=== PATIENT | female | born 1960 | race Caucasian/White ===

== ENCOUNTER 2023-04-29 09:20 | Outpatient (OUT) | payer OTHER, SELFPAY ==
--- NOTE | 2023-04-29 09:29 | MR_ITS ---
The [address] [address] Patient Name: MIS POLO MRN: [id number] date: 1960 Sex: F Assigned Patient Location: MRI Current Patient Location: MRI Accession/Order Number: [id number] Exam Date: 04/29/2023 09:50 Report Date: 04/29/2023 12:37 At the request of: NON-STAFF PHYSICIAN Procedure: MR foot LT wo con HISTORY: Chronic left heel pain radiating into the plantar surface of the left foot for the past year. The patient has reportedly had prior surgery for plantar fasciitis. MR foot LT wo con: 04/29/2023, 9:50 AM EST COMPARISON: Radiographs left foot 07/24/2018 and radiographs left ankle 07/25/2018. TECHNIQUE: Multiplanar, multisequence MRI images of the left foot were obtained without contrast. FINDINGS: Several images are degraded by motion artifact. This motion artifact is most pronounced on the T2 images. LIGAMENTS AND TENDONS: The anterior talofibular ligament appears thin but of low signal intensity. The deltoid ligament complex appears thin but of low signal intensity. There are well-corticated ossific foci seen along the inferior aspect of the medial malleolus compatible with the sequela of remote trauma to this region. The other ligaments of the ankle appear grossly unremarkable. The Lisfranc ligament complex appears intact. No significant tendinopathy, tendon tear, or tenosynovitis is seen. BONES AND JOINTS: The bone marrow signal intensity appears age appropriate. There are mild degenerative changes of the first MTP joint and moderate degenerative changes of the first metatarsal-sesamoid joints. There are mild degenerative changes of the calcaneocuboid joint with mild reactive subchondral bone marrow edema involving the proximal and dorsal [facility]. No other bone marrow edema-like signal is seen. MUSCLES AND SOFT TISSUES: The visualized musculature appears of normal signal intensity. No Breaux neuroma or intermetatarsal bursitis is seen. PLANTAR FASCIA: There is a large plantar calcaneal enthesophyte again seen. There is moderate thickening and intermediate signal intensity of the proximal portion of the central and lateral band of the plantar fascia at their attachment to the calcaneus as best seen on the sagittal proton-density fat-saturated images. MR/MR foot LT wo con IMPRESSION: 1. There are MRI findings compatible with at least moderate plantar fasciitis involving the proximal portion of the central and lateral band of the plantar fascia at their attachment to the calcaneus with a large plantar calcaneal enthesophyte again seen in this region. 2. Mild osteoarthritis of the first MTP joint and moderate osteoarthritis of the first metatarsal-sesamoid joints. 3. Mild osteoarthritis of the calcaneocuboid joint with mild reactive subchondral bone marrow edema involving the proximal and dorsal cuboid. 4. Probable remote grade 2 sprains of the anterior talofibular ligament and deltoid ligament complex. No acute ligament injury is seen. Electronically authenticated by: MAXIM VÁZQUEZ Date: 04/29/2023 12:37
== END 2023-04-29 09:21 | disposition home or self-care (01) ==
LOC: MRI 09:23
PROVIDERS: PCP Family Medicine
DX: M84.375A Stress fracture, left foot, initial encounter for fracture (principal); M72.2 Plantar fascial fibromatosis
CPT/HCPCS: 73718